=== PATIENT | female | born 1980 | race African-American/Black ===

== ENCOUNTER 2020-01-03 20:13 | Observation (INO) | payer OTHER ==
[2020-01-03] MEDS ORDERED: SODIUM CHLORIDE 1,000 ML IV STA (20:20)
[2020-01-03] MEDS ORDERED: EPINEPHrine 1:1,000 0.3 MG/0.3 ML SYR IM ONE (20:20)
[2020-01-03] MEDS ORDERED: ALBUTEROL SO4 2.5/IPRATROPIUM 0.5 INH SOL 3 ML VIAL.NEB. NEB ONE ×2 (20:20→21:16)
[2020-01-03] MEDS ORDERED: methylPREDNISolone NA SUCC 125 MG/2 ML VIAL IVPB ONE (20:20)
[2020-01-03] MEDS ORDERED: FAMOTIDINE 20 MG/50 ML IVPB 20 MG/50 ML MG IVPB ONE ×2 (20:20→21:17)
[2020-01-03] MEDS ORDERED: SODIUM CHLORIDE 2,204 ML IV ONE (20:43)
[2020-01-03] MEDS ORDERED: ACETAMINOPHEN 1000 MG/100 ML VIAL (NON FORMULARY) IVPB ONE (20:45)
--- NOTE | 2020-01-03 21:04 | PDOC ---
History of Present Illness - General Chief Complaint: Allergic Reaction Stated Complaint: ALLERGIC REACTION Time Seen by Provider: 01/03/20 20:30 - History of Present Illness Initial Comments: 01/03/20 20:56 39yo F with PMH of hypothyroidism (on synthroid) and ideopathic allergic reactions (extensive outpatient workup was reportedly negative) presents with two days of hives and several hours of SOB, chest pain, and abdominal pain. Unknown trigger. Reports sharp, intermittent, substernal chest pain without radiation. Not exertional, positional, or worse with deep breaths. Also reports suprapubic abdominal pain. Reports two days of hives not relieved by cetirizine. Denies f/c, n/v, constipation, diarrhea, urinary symptoms. Reports knee cramping. PMH/PSH: as above Meds: cetirizine, famotidine, synthroid Allergies: unknown ROS GENERAL/CONSTITUTIONAL: No fever or chills. HEAD, EYES, EARS, NOSE AND THROAT: No change in vision. No ear pain or discharge. No sore throat. CARDIOVASCULAR: chest pain and shortness of breath RESPIRATORY: No cough, wheezing, or hemoptysis. GASTROINTESTINAL: No nausea, vomiting, diarrhea or constipation. GENITOURINARY: No dysuria, frequency, or change in urination. MUSCULOSKELETAL: knee pain. No neck or back pain. SKIN: hives NEUROLOGIC: No headache, vertigo, loss of consciousness, or change in strength/sensation. ENDOCRINE: No increased thirst. No abnormal weight change HEMATOLOGIC/LYMPHATIC: No anemia, easy bleeding, or history of blood clots. PE GENERAL: Awake, alert, and fully oriented, in no acute distress on non- rebreather HEAD: No signs of trauma, normocephalic, atraumatic EYES: PERRLA, EOMI, sclera anicteric, conjunctiva clear ENT: Auricles normal inspection, hearing grossly normal, nares patent, oropharynx clear without exudates. Moist mucosa NECK: Normal ROM, supple, no lymphadenopathy, JVD, or masses LUNGS: No distress, speaks full sentences, clear to auscultation bilaterally HEART: Regular rate and rhythm, normal S1 and S2, no murmurs, rubs or gallops, p eripheral pulses normal and equal bilaterally. ABDOMEN: Soft, nontender, normoactive bowel sounds. No guarding, no rebound. No masses EXTREMITIES : Normal inspection, Normal range of motion, no edema. No clubbing or cyanosis. NEUROLOGICAL: Cranial nerves II through XII grossly intact. Normal speech, no focal sensorimotor deficits SKIN: urticaria throughout Vital Signs Temp Pulse Resp BP Pulse Ox 101.5 F H 124 H 20 116/72 92 L 01/03/20 20:15 01/03/20 20:15 01/03/20 20:15 01/03/20 20:15 01/03/20 20:15 MDM: 39yo female with hypothyroidsm and unknown allergy presents with hives and SOB, and also reports chest pain, abdominal pain, and knee cramping. Found to be febrile, tachycardic, and hypoxic. DDx includes anaphylaxis, allergic skin react ion, UTI, pneumonia, familial allergic disorder. -EKG -CXR -CBC, CMP, trops, coags, UA/UC, blood cultures -TSH, C1 esterase inhibitor, C1Q complement, C4 complement -fluids at 30cc/kg, tylenol, albuterol, benadryl, epi-pen, methylprednisolone, famotidine -oxygen 01/03/20 23:31 Labs notable for WBC 12.4 with 86.4% neutrophils, INR 1.24, UA with blood (on period) Will admit for severe allergic reaction and likely viral syndrome. Covid on differential Past History - Medical History Allergies/Adverse Reactions: Allergies Allergy/AdvReac Type Severity Reaction Status Date / Time No Known Allergies Allergy Verified 01/03/20 20:17 Home Medications: Ambulatory Orders Levothyroxine [Synthroid -] 100 mcg PO DAILY 06/30/14 Bacitracin - [Bacitracin Topical Ointment -] 1 applic TP DAILY 14 Days #1 tube 09/26/19 Diphenhydramine HCl [Benadryl Capsule -] 25 mg PO Q8H PRN #90 capsule 09/26/19 Famotidine [Pepcid -] 20 mg PO DAILY #30 tablet 09/26/19 Hydroxyzine HCl 50 mg PO TID PRN #90 tablet 09/26/19 predniSONE [Deltasone -] 10 mg PO DAILY 10/17/19 Asthma: No Cancer: No Cardiac Disorders: No COPD: No Diabetes: No HTN: No Seizures: No Thyroid Disease: Yes (hypothyroidism) - Reproductive History Is Patient Now?: No - Psycho-Social/Smoking History Smoking History: Never smoked Have you smoked in the past 12 months: No - Substance Abuse Hx (Audit-C & DAST Scrn) How often the patient has a drink containing alcohol: Monthly or less Score: In Men: 4 or > Positive; In Women: 3 or > Positive: 1 Screen Result (Pos requires Nsg. Audit-10AR): Negative *Physical Exam - Vital Signs Last Vital Signs Temp Pulse Resp BP Pulse Ox 101.5 F H 124 H 20 116/72 92 L 01/03/20 20:15 01/03/20 20:15 01/03/20 20:15 01/03/20 20:15 01/03/20 20:15 ED Treatment Course - LABORATORY CBC & Chemistry Diagram: 01/03/20 21:15 01/03/20 21:15 Discharge - Discharge Information Problems reviewed: Yes Clinical Impression/Diagnosis: Recurrent urticaria, Hypoxia Chest pain Qualifiers: Chest pain type: unspecified Qualified Code(s): R07.9 - Chest pain, unspecified Leukocytosis Qualifiers: Leukocytosis type: other Qualified Code(s): D72.828 - Other elevated white blood cell count - Follow up/Referral - Patient Discharge Instructions - Post Discharge Activity
[2020-01-03] MEDS ORDERED: ACETAMINOPHEN INJECTION 100 ML IVPB ONE (21:16)
[2020-01-03] MEDS ORDERED: methylPREDNISolone NA SUCC 125 MG/2 ML VIAL ONE (21:17)
[2020-01-03] MEDS ORDERED: EPINEPHrine/PF 1 MG/1 ML (1:1,000) AMPULE IM ONE (21:32)
[2020-01-03 21:59] LABS: BASO % 0.4 % (0-2.0); EOS % 0.4 % (0-4.5); HEMATOCRIT 36.7 % (32.4-45.2); HEMOGLOBIN 12.1 GM/dL (10.7-15.3); LYMPH % 9.9 % (8-40); MCH 28.7 pg (25.7-33.7); MCHC 32.9 g/dl (32.0-36.0); MEAN CELL VOLUME 87.2 fl (80-96); MEAN PLT VOLUME 9.1 fl (7.5-11.1); MONO % 2.9 % (3.8-10.2); NEUT % 86.4 % (42.8-82.8); PLATELET COUNT 282 K/MM3 (134-434); RBC 4.21 M/mm3 (3.60-5.2); RDW 14.7 % (11.6-15.6); WHITE BLOOD COUNT 12.4 K/mm3 (4.0-10.0)
--- NOTE | 2020-01-03 21:59 | PDOC ---
Documentation entered by Maribel Jaimes SCRIBE, acting as scribe for Radha Morales MD. Radha Morales MD: This documentation has been prepared by the scribeTheodore Ana, SCRIBE, under my direction and personally reviewed by me in its entirety. I confirm that the documentation accurately reflects all work, treatment, procedures, and medical decision making performed by me. Attending Attestation - Resident Resident Name: MorgandailytoyinJacob - ED Attending Attestation I have performed the following: I have examined & evaluated the patient, The case was reviewed & discussed with the resident, I agree w/resident's findings & plan, Exceptions are as noted - HPI HPI: 01/03/20 21:32 Patient is a 39 year old female with a significant past medical history of hypothyroidism and ideopathic allergic reactions, who presents to the ED with hives x2 days, SOB, chest pain, and abdominal pain x several hours. Patient stated the trigger of his symptoms is unknown but describes his chest pain as intermittent and that it does not radiate. Patient said his pain gets worse when he attempts to take a deep breath. Patient endorses: knee cramping Patient denies: fever, chills, nausea, vomiting, constipation, diarrhea, any urinary issues, or any other related symptoms. Allergies: NKDA - Physicial Exam PE: 01/03/20 22:04 Febrile General: awake, alert, fully oriented, mild acute distress, well developed, well nourished Head: normocephalic, atraumatic Eyes: PERRL, EOMI, anicteric sclera, conjunctiva clear, + swelling of face/lips ENT: Auricles normal inspection, hearing grossly normal, oropharynx clear without exudates, no nasal congestion, dry mucous membranes Neck: supple, normal ROM, no LAD, JVD or masses Lung: equal breath sounds b/l, CTA b/l, no crackles, wheezes; no distress, speaks full sentences Heart: RRR, normal S1, S2, no murmurs appreciated Abdomen: soft, non tender, normoactive bowel sounds, no guarding, rebound, masses Extremities: normal ROM, no edema, no erythema or tenderness, DP/PT pulses 2+ and symmetric Neuro: Cranial nerves: Cranial nerves II through XII are intact Motor: The upper extremities are 5/5 in all muscle groups. The lower extremities are 5/5 in all muscle groups. No pronator drift. Sensation: Sensation is intact to light touch throughout. Gait: Normal Skin: warm, dry, hives al over her lower legs and abd 01/03/20 22:05 - Medical Decision Making 01/03/20 21:56 Pt comes with fever and a picture that looks like HAE; pt states that she has been having this episode since ; progressive worsening of her hives. 01/03/20 21:57 Pt states that this time zantac didnt help her. She has had allergy testing and is allergic to no foods. Pt did drink milk today and had a cheese/cream based soup today 01/03/20 22:03 Pt's labs are pending 01/03/20 23:29 Pt is on her menstrual cycle, as such she has hematuria 01/04/20 03:00 Pt wull be admitted for HAE as well as thyroid disease. Discharge - Discharge Information Problems reviewed: Yes Clinical Impression/Diagnosis: Recurrent urticaria, Hypoxia Chest pain Qualifiers: Chest pain type: unspecified Qualified Code(s): R07.9 - Chest pain, unspecified Leukocytosis Qualifiers: Leukocytosis type: other Qualified Code(s): D72.828 - Other elevated white blood cell count - Follow up/Referral - Patient Discharge Instructions - Post Discharge Activity
[2020-01-03 22:06] LABS: EPI CELLS 9 /uL (0-25.1); HYALINE CASTS 0 /uL (0-3.1); URINE APPEARANCE CLEAR; URINE BACTERIA 235 /uL (0-1359); URINE BILIRUBIN NEGATIVE (NEGATIVE); URINE COLOR RED; URINE GLUCOSE (UA) NEGATIVE (NEGATIVE); URINE KETONE NEGATIVE (NEGATIVE); URINE LEUK ESTERASE TRACE (NEGATIVE); URINE NITRITE NEGATIVE (NEGATIVE); URINE PROTEIN NEGATIVE (NEGATIVE); URINE RBC 2318 /uL (0-23.9); URINE UROBILINOGEN 0.2 mg/dL (0.2-1.0); URINE WBC 14 /uL (0-25.8)
[2020-01-03 22:09] LABS: INR 1.24 (0.83-1.09); PROTHROMBIN TIME (PATIENT) 14.7 SEC (9.7-13.0)
[2020-01-03 22:11] LABS: ACTIVATED PTT 29.3 SECONDS (25.2-36.5)
[2020-01-03 22:27] LABS: ALBUMIN 3.3 g/dl (3.4-5.0); ALK PHOS 69 U/L (45-117); ANION GAP 8 MMOL/L (8-16); BILIRUBIN,TOTAL 0.5 mg/dL (0.2-1); BLOOD UREA NITROGEN 9.7 mg/dL (7-18); CALCIUM 8.9 mg/dL (8.5-10.1); CHLORIDE 105 mmol/L (98-107); CO2 24 mmol/L (21-32); CREATININE 0.7 mg/dL (0.55-1.3); GLUCOSE,RANDOM 97 mg/dL (74-106); POTASSIUM 4.5 mmol/L (3.5-5.1); SGOT/AST 36 U/L (15-37); SGPT/ALT 35 U/L (13-61); SODIUM 138 mmol/L (136-145)
[2020-01-03] MEDS ORDERED: EPINEPHrine/PF 1 MG/1 ML (1:1,000) AMPULE ONE (23:03)
--- NOTE | 2020-01-04 00:03 | PN ---
Teaching Attending Note Name of Resident: Imelda Anderson ATTENDING PHYSICIAN STATEMENT I saw and evaluated the patient. I reviewed the resident's note and discussed the case with the resident. I agree with the resident's findings and plan as documented. SUBJECTIVE: 39yoF with h/o Richelle's thyoriditis, hypothyroidism, and idiopathic anap hylaxis who presents with urticarial rash and shortness of breath. Patient notes she has had anaphylactic reactions multiplie times, follows with an fitness floor attendant but no trigger has been identified. Has been otherwise in her usual state of health. She was febrile on arrival to the ED and tachycardic to 124. Complaining of shortness of breath and abdominal pain. Received Benadryl, famotidine, Solumedrol, and IM epinephrine with improvement in breathing but no signfiicant change in the rash. CXR unremarkable, UA with some blood but noted to be on her menstrual period. OBJECTIVE: Vital Signs (72 hours) 01/03/20 01/04/20 01/04/20 20:15 00:34 06:45 Temperature 101.5 F H 98.1 F 97.4 F L Pulse Rate 124 H Pulse Rate [ 113 H 103 H Left Apical] Respiratory 20 18 19 Rate Blood Pressure 116/72 Blood Pressure 113/70 99/69 [Left Arm] O2 Sat by Pulse 92 L 99 98 Oximetry (%) EXAM: Gen: awake, alert, NAD HEENT: NC/AT CV: RRR, tachycardic, no MRG Resp: CTAB, unlabored Abd: Soft, NT, ND Derm: Diffuse wheals on extremities and torso, worst at upper thighs Ext: no edema Laboratory Results - last 24 hr 01/03/20 01/03/20 01/03/20 21:15 21:15 21:15 WBC 12.4 H RBC 4.21 Hgb 12.1 Hct 36.7 MCV 87.2 MCH 28.7 MCHC 32.9 RDW 14.7 Plt Count 282 MPV 9.1 Absolute Neuts (auto) 10.7 H Total Counted Neutrophils % 86.4 H Neutrophils % (Manual) Band Neutrophils % Lymphocytes % 9.9 D Lymphocytes % (Manual) Monocytes % 2.9 L Monocytes % (Manual) Eosinophils % 0.4 Basophils % 0.4 Nucleated RBC % 0 Platelet Estimate Platelet Comment PT with INR 14.70 H INR 1.24 H PTT (Actin FS) 29.3 Sodium 138 Potassium 4.5 Chloride 105 Carbon Dioxide 24 Anion Gap 8 BUN 9.7 Creatinine 0.7 Est GFR (CKD-EPI)AfAm 128.28 Est GFR (CKD-EPI)NonAf 110.69 Random Glucose 97 Lactic Acid Calcium 8.9 Phosphorus Magnesium Total Bilirubin 0.5 AST 36 ALT 35 Alkaline Phosphatase 69 Troponin I < 0.02 Total Protein 7.0 Albumin 3.3 L TSH 0.13 L Thyroxine (T4) Urine Color Urine Appearance Urine pH Ur Specific [place] Urine Protein Urine Glucose (UA) Urine Ketones Urine Blood Urine Nitrite Urine Bilirubin Urine Urobilinogen Ur Leukocyte Esterase Urine WBC (Auto) Urine RBC (Auto) Urine Casts (Auto) U Epithel Cells (Auto) Urine Bacteria (Auto) 01/03/20 01/03/20 01/04/20 21:30 21:30 04:50 WBC 11.3 H RBC 4.10 Hgb 11.7 Hct 35.2 MCV 86.0 MCH 28.4 MCHC 33.1 RDW 14.4 Plt Count 271 MPV 8.3 Absolute Neuts (auto) 10.8 H Total Counted 100 Neutrophils % 96.3 H Neutrophils % (Manual) 95.0 H Band Neutrophils % 1.0 Lymphocytes % 3.1 L D Lymphocytes % (Manual) 3.0 L D Monocytes % 0.6 L Monocytes % (Manual) 1 L Eosinophils % 0.0 D Basophils % 0.0 Nucleated RBC % 0 Platelet Estimate Adequate Platelet Comment No clotting detected PT with INR INR PTT (Actin FS) Sodium Potassium Chloride Carbon Dioxide Anion Gap BUN Creatinine Est GFR (CKD-EPI)AfAm Est GFR (CKD-EPI)NonAf Random Glucose Lactic Acid 1.6 Calcium Phosphorus Magnesium Total Bilirubin AST ALT Alkaline Phosphatase Troponin I Total Protein Albumin TSH Thyroxine (T4) Urine Color Red Urine Appearance Clear Urine pH 8.0 D Ur Specific [place] 1.008 L Urine Protein Negative Urine Glucose (UA) Negative Urine Ketones Negative Urine Blood 3+ H Urine Nitrite Negative Urine Bilirubin Negative Urine Urobilinogen 0.2 Ur Leukocyte Esterase Trace Urine WBC (Auto) 14 Urine RBC (Auto) 2318 Urine Casts (Auto) 0 U Epithel Cells (Auto) 9 Urine Bacteria (Auto) 235 01/04/20 04:50 WBC RBC Hgb Hct MCV MCH MCHC RDW Plt Count MPV Absolute Neuts (auto) Total Counted Neutrophils % Neutrophils % (Manual) Band Neutrophils % Lymphocytes % Lymphocytes % (Manual) Monocytes % Monocytes % (Manual) Eosinophils % Basophils % Nucleated RBC % Platelet Estimate Platelet Comment PT with INR INR PTT (Actin FS) Sodium 140 Potassium 4.1 Chloride 108 H Carbon Dioxide 22 Anion Gap 10 BUN 7.0 Creatinine 0.9 Est GFR (CKD-EPI)AfAm 94.67 Est GFR (CKD-EPI)NonAf 81.68 Random Glucose 194 H Lactic Acid Calcium 8.8 Phosphorus 2.8 Magnesium 1.9 Total Bilirubin 0.4 AST 22 ALT 35 Alkaline Phosphatase 76 Troponin I Total Protein 7.4 Albumin 3.5 TSH Thyroxine (T4) 10.9 Urine Color Urine Appearance Urine pH Ur Specific [place] Urine Protein Urine Glucose (UA) Urine Ketones Urine Blood Urine Nitrite Urine Bilirubin Urine Urobilinogen Ur Leukocyte Esterase Urine WBC (Auto) Urine RBC (Auto) Urine Casts (Auto) U Epithel Cells (Auto) Urine Bacteria (Auto) ASSESSMENT AND PLAN: 39yoF with h/o Richelle's thyoriditis, hypothyroidism, and idiopathic anap hylaxis who presents with urticarial rash and shortness of breath. Recurrent idiopathic anaphylaxis - monitor for recurrence of symptoms - continue home Zyrtec, famotidine - f/u with allergy Fever, SIRS Unclear etiology; WBC 12.4 as well No focalizing signs/sx CXR, UA unremarkable - monitor clinically - antibiotics deferred given lack of source and current well appearance - consider ID consult if fever returns Hypothyroid: TSH low; f/u T4. Continue home meds DVT ppx: Lovenox subq
--- NOTE | 2020-01-04 01:19 | HP ---
CHIEF COMPLAINT: SOB, rash PCP: Dr. Lopes HISTORY OF PRESENT ILLNESS: 39 y.o. F PMH hypothyroidism 2/2 Richelle's presenting for urticarial rash and shortness of breath. Patient states she was sitting at home and the rash came on suddenly, followed by bronchospasms w/ subsequent difficulty breathing. She has had many similar episodes in the past. Today in ED pt received steroids & duonebs with improvement of breathing however rash has persisted. During last hospital admission 09/21-09/25 was sent home w/ steroid taper and benadryl prn. During this patient found to have high DANICA titer and was sent to outpatient rheum for further rheumatological workup, which she reports came back all negative. She also had a skin biopsy at this time showing nonspecific lymphocytic infiltrate and eosinophilicis. Patient denies using any new soaps or detergents. No pets in the home. No sick contacts. ER course was notable for: (1) 125mg IV solu medrol (2)benadryl 50mg, epipen x1 (3) duonebs x3, 1L NS (4) fever 101.5F; wbc 12.4 Recent Travel: denies PAST MEDICAL HISTORY: as per hpi PAST SURGICAL HISTORY: ovarian cyst removal at age 24 ObGYN: LMP started 3 days ago 01/01/20, normal flow. 2 x NSVDs. Social History: Smoking: denies Alcohol:denies Drugs: denies FAMILY History: Diabetes, HTN, Allergies No Known Allergies Allergy (Verified 01/03/20 20:17) HOME MEDICATIONS: Home Medications Medication Instructions Recorded Levothyroxine [Synthroid -] 100 mcg PO DAILY 06/30/14 Bacitracin - [Bacitracin Topical 1 applic TP DAILY 14 Days #1 tube 09/26/19 Ointment -] Diphenhydramine HCl [Benadryl 25 mg PO Q8H PRN #90 capsule 09/26/19 Capsule -] Famotidine [Pepcid -] 20 mg PO DAILY #30 tablet 09/26/19 Hydroxyzine HCl 50 mg PO TID PRN #90 tablet 09/26/19 predniSONE [Deltasone -] 10 mg PO DAILY 10/17/19 REVIEW OF SYSTEMS CONSTITUTIONAL: Absent: fever, chills, diaphoresis, generalized weakness, malaise, loss of appetite, weight change HEENT: Absent: rhinorrhea, nasal congestion, throat pain, throat swelling, difficulty swallowing, mouth swelling, ear pain, eye pain, visual changes CARDIOVASCULAR: Absent: chest pain, syncope, palpitations, irregular heart rate, lightheadedness, peripheral edema RESPIRATORY: Absent: cough, shortness of breath, dyspnea with exertion, orthopnea, wheezing, stridor, hemoptysis GASTROINTESTINAL: Absent: abdominal pain, abdominal distension, nausea, vomiting, diarrhea, constipation, melena, hematochezia GENITOURINARY: Absent: dysuria, frequency, urgency, hesitancy, hematuria, flank pain, genital pain MUSCULOSKELETAL: Absent: myalgia, arthralgia, joint swelling, back pain, neck pain SKIN: Absent: rash, itching, pallor HEMATOLOGIC/IMMUNOLOGIC: Absent: easy bleeding, easy bruising, lymphadenopathy, frequent infections ENDOCRINE: Absent: unexplained weight gain, unexplained weight loss, heat intolerance, cold intolerance NEUROLOGIC: Absent: headache, focal weakness or paresthesias, dizziness, unsteady gait, seizure, mental status changes, bladder or bowel incontinence PSYCHIATRIC: Absent: anxiety, depression, suicidal or homicidal ideation, hallucinations. PHYSICAL EXAMINATION Vital Signs - 24 hr 01/03/20 01/04/20 20:15 00:34 Temperature 101.5 F H 98.1 F Pulse Rate 124 H Pulse Rate [ 113 H Left Apical] Respiratory 20 18 Rate Blood Pressure 116/72 Blood Pressure 113/70 [Left Arm] O2 Sat by Pulse 92 L 99 Oximetry (%) GENERAL: Awake, alert, and fully oriented, in no acute distress. HEENT: NCAT MMM LUNGS: Breath sounds equal, clear to auscultation bilaterally. No wheezes, and no crackles. No accessory muscle use. HEART: Regular rate and rhythm, normal S1 and S2 without murmur, rub or gallop. ABDOMEN: Soft, nontender, not distended, normoactive bowel sounds, no guarding, no rebound, no masses. MUSCULOSKELETAL: Normal range of motion at all joints. No bony deformities or tenderness. No CVA tenderness. EXTREMITIES: 2+ pulses, warm, well-perfused. No calf tenderness. No peripheral edema. SKIN: urticarial rash present b/l thighs and chest. Laboratory Results - last 24 hr 01/03/20 01/03/20 01/03/20 21:15 21:15 21:15 WBC 12.4 H RBC 4.21 Hgb 12.1 Hct 36.7 MCV 87.2 MCH 28.7 MCHC 32.9 RDW 14.7 Plt Count 282 MPV 9.1 Absolute Neuts (auto) 10.7 H Neutrophils % 86.4 H Lymphocytes % 9.9 D Monocytes % 2.9 L Eosinophils % 0.4 Basophils % 0.4 Nucleated RBC % 0 PT with INR 14.70 H INR 1.24 H PTT (Actin FS) 29.3 Sodium 138 Potassium 4.5 Chloride 105 Carbon Dioxide 24 Anion Gap 8 BUN 9.7 Creatinine 0.7 Est GFR (CKD-EPI)AfAm 128.28 Est GFR (CKD-EPI)NonAf 110.69 Random Glucose 97 Lactic Acid Calcium 8.9 Total Bilirubin 0.5 AST 36 ALT 35 Alkaline Phosphatase 69 Troponin I < 0.02 Total Protein 7.0 Albumin 3.3 L TSH 0.13 L Urine Color Urine Appearance Urine pH Ur Specific [place] Urine Protein Urine Glucose (UA) Urine Ketones Urine Blood Urine Nitrite Urine Bilirubin Urine Urobilinogen Ur Leukocyte Esterase Urine WBC (Auto) Urine RBC (Auto) Urine Casts (Auto) U Epithel Cells (Auto) Urine Bacteria (Auto) 01/03/20 01/03/20 21:30 21:30 WBC RBC Hgb Hct MCV MCH MCHC RDW Plt Count MPV Absolute Neuts (auto) Neutrophils % Lymphocytes % Monocytes % Eosinophils % Basophils % Nucleated RBC % PT with INR INR PTT (Actin FS) Sodium Potassium Chloride Carbon Dioxide Anion Gap BUN Creatinine Est GFR (CKD-EPI)AfAm Est GFR (CKD-EPI)NonAf Random Glucose Lactic Acid 1.6 Calcium Total Bilirubin AST ALT Alkaline Phosphatase Troponin I Total Protein Albumin TSH Urine Color Red Urine Appearance Clear Urine pH 8.0 D Ur Specific [place] 1.008 L Urine Protein Negative Urine Glucose (UA) Negative Urine Ketones Negative Urine Blood 3+ H Urine Nitrite Negative Urine Bilirubin Negative Urine Urobilinogen 0.2 Ur Leukocyte Esterase Trace Urine WBC (Auto) 14 Urine RBC (Auto) 2318 Urine Casts (Auto) 0 U Epithel Cells (Auto) 9 Urine Bacteria (Auto) 235 ASSESSMENT/PLAN: 39 y.o. F PMH Hashimotos thryoiditis presenting for shortness of breath with urticarial rash #Sepsis 2/2 anaphylaxis, likely allergic reaction -s/p steroids, epi in ED -s/p duonebs x3, benadryl with improvement of breathing status -monitor for worsening anaphylaxis -f/u covid-19 pcr -f/u cultures -consider empiric abx if patient remains febrile -UA showing 3+ blood however patient currently menstruating -rheumatology not consulted however may be beneficial to obtain records from outpatient office -recommend coding validator for allergen testing -f/u tick panel -leukocytosis likely 2/2 steroids given, f/u repeat #Hypothyroidism -continue synthroid -f/u TSH, free T4 #FEN -no standing fluids monitor & replete lytes prn regular diet #PPX Lovenox sq #Dispo observation Family Medical History Family History: As Documented Visit type - Emergency Visit Emergency Visit: Yes ED Registration Date: 01/03/20 Care time: The patient presented to the Emergency Department on the above date and was hospitalized for further evaluation of their emergent condition. - New Patient This patient is new to me today: Yes Date on this admission: 01/04/20 - Critical Care Critical Care patient: No ATTENDING PHYSICIAN STATEMENT I saw and evaluated the patient. I reviewed the resident's note and discussed the case with the resident. I agree with the resident's findings and plan as documented. SUBJECTIVE: OBJECTIVE: ASSESSMENT AND PLAN:
[2020-01-04] MEDS ORDERED: ALBUTEROL SO4 HFA INHALER IH PRN (01:33)
[2020-01-04 05:23] LABS: HEMATOCRIT 35.2 % (32.4-45.2); HEMOGLOBIN 11.7 GM/dL (10.7-15.3); LYMPH % 3.1 % (8-40); MCH 28.4 pg (25.7-33.7); MCHC 33.1 g/dl (32.0-36.0); MEAN PLT VOLUME 8.3 fl (7.5-11.1); MONO % 0.6 % (3.8-10.2); NEUT % 96.3 % (42.8-82.8); PLATELET COUNT 271 K/MM3 (134-434); RDW 14.4 % (11.6-15.6); WHITE BLOOD COUNT 11.3 K/mm3 (4.0-10.0)
[2020-01-04 05:53] LABS: ALBUMIN 3.5 g/dl (3.4-5.0); BILIRUBIN,TOTAL 0.4 mg/dL (0.2-1); CALCIUM 8.8 mg/dL (8.5-10.1); CREATININE 0.9 mg/dL (0.55-1.3); MAGNESIUM 1.9 mg/dL (1.8-2.4); PHOSPHOROUS 2.8 mg/dL (2.5-4.9); POTASSIUM 4.1 mmol/L (3.5-5.1); TOT PROT 7.4 g/dl (6.4-8.2)
[2020-01-04 06:56] LABS: PLATELET ESTIMATE ADEQUATE
[2020-01-04] MEDS ORDERED: ENOXAPARIN NA (PORCINE) 40 MG/0.4 ML DISP.SYRIN SQ ONE (10:16)
[2020-01-04] MEDS: ENOXAPARIN NA (PORCINE) 40 MG/0.4 ML DISP.SYRIN SQ SCH (10:24)
--- NOTE | 2020-01-04 10:36 | PN ---
Progress Note, Physician History of Present Illness: 39 y.o. F PMH hypothyroidism 2/2 Richelle's presenting for urticarial rash and shortness of breath. Patient states she was sitting at home and the rash came on suddenly, followed by bronchospasms w/ subsequent difficulty breathing. She has had many similar episodes in the past. This episode started on she called her apprenticeship training representative and zyrtec incrased to 2 bid and fomatidine added . Y rash worse with associated sob. In ED pt received steroids & duonebs with improvement of breathing however rash has persisted. During last hospital admission 09/21-09/25 was sent home w/ steroid taper and benadryl prn. During this patient found to have high DANICA titer and was sent to outpatient rheum for further rheumatological workup, which she reports came back all negative. She also had a skin biopsy at this time showing nonspecific lymphocytic infiltrate and eosinophilicis. Patient denies using any new soaps or detergents. No pets in the home. No sick contacts. At this time pt without sob or chest pain wants to go home - Current Medication List Current Medications: Active Medications Albuterol Sulfate (Ventolin 0.083% Nebulizer Soln -) 1 amp NEB Q4H PRN PRN Reason: SHORT OF BREATH/WHEEZING Albuterol Sulfate (Ventolin Hfa Inhaler -) 2 puff IH Q4H PRN PRN Reason: SHORTNESS OF BREATH Enoxaparin Sodium (Lovenox -) 40 mg SQ DAILY [facility] Last Admin: 01/04/20 10:24 Dose: 40 mg Documented by: Famotidine (Pepcid -) 20 mg PO BID [facility] Levothyroxine Sodium (Synthroid -) 75 mcg PO DAILY@0700 [facility] Loratadine (Claritin -) 10 mg PO DAILY [facility] Prednisone (Deltasone -) 60 mg PO DAILY [facility] - Objective Vital Signs: Vital Signs Temperature 98.4 F 01/04/20 09:46 Pulse Rate 83 01/04/20 09:46 Respiratory Rate 18 01/04/20 09:46 Blood Pressure 107/70 01/04/20 09:46 O2 Sat by Pulse Oximetry (%) 99 01/04/20 09:46 Cardiovascular: Yes: Regular Rate and Rhythm Respiratory: Yes: Regular, CTA Bilaterally Gastrointestinal: Yes: Normal Bowel Sounds, Soft Edema: No Integumentary: Yes: Rash (few on legs) Neurological: Yes: Alert, Oriented Labs: CBC, BMP 01/04/20 04:50 01/04/20 04:50 INR, PTT INR 1.24 (0.83-1.09) H 01/03/20 21:15 Problem List - Problems (1) Urticaria Assessment/Plan: Has had extensive work up with apprenticeship training representative needs further follow up and has apt on sunday po prednisone famotidine Code(s): L50.9 - URTICARIA, UNSPECIFIED (2) Fever Assessment/Plan: no further temps cultures negative no abx id consult Code(s): R50.9 - FEVER, UNSPECIFIED (3) Leukocytosis Assessment/Plan: now high maybe stress induced and steroids Code(s): D72.829 - ELEVATED WHITE BLOOD CELL COUNT, UNSPECIFIED Qualifiers: Leukocytosis type: other Qualified Code(s): D72.828 - Other elevated white blood cell count (4) Recurrent urticaria Assessment/Plan: as above Code(s): L50.8 - OTHER URTICARIA (5) Hypothyroid Assessment/Plan: decrease synthroid and monitor tsh check antibodies Code(s): E03.9 - HYPOTHYROIDISM, UNSPECIFIED
[2020-01-04] MEDS ORDERED: FAMOTIDINE 20 MG TABLET ONE (11:32)
[2020-01-04] MEDS ORDERED: predniSONE 20 MG TABLET (UD) ONE (11:32)
[2020-01-04] MEDS ORDERED: LORATADINE 10 MG TABLET ONE (11:33)
[2020-01-04] MEDS: FAMOTIDINE 20 MG TABLET PO SCH ×2 (11:38→21:53)
[2020-01-04] MEDS: LORATADINE 10 MG TABLET PO SCH (11:38)
[2020-01-04] MEDS: predniSONE 20 MG TABLET (UD) PO SCH (11:38)
--- NOTE | 2020-01-04 12:41 | EKG ---
Test Reason : Blood Pressure : / mmHG Vent. Rate : 117 BPM Atrial Rate : 117 BPM P-R Int : 140 ms QRS Dur : 076 ms QT Int : 342 ms P-R-T Axes : 048 016 012 degrees QTc Int : 477 ms SINUS TACHYCARDIA LOW VOLTAGE QRS NONSPECIFIC T WAVE ABNORMALITY ABNORMAL ECG WHEN COMPARED WITH ECG OF 23-SEP-2019 00:58, INVERTED T WAVES HAVE REPLACED NONSPECIFIC T WAVE ABNORMALITY IN ANTERIOR LEADS Confirmed by Jose Guadalupe Harris ([id number]) on 01/04/2020 12:41:06 PM Referred By: Confirmed By:Jose Guadalupe Harris
[2020-01-04 16:04] VITALS: BMI 31.0
[2020-01-05] MEDS ORDERED: diphenhydrAMINE HCL 25 MG CAPSULE (FP) PO ONE ×2 (00:34→06:25)
[2020-01-05] MEDS ORDERED: LEVOTHYROXINE NA 75 MCG TABLET (FP) PO SCH (07:00)
[2020-01-05] MEDS: FAMOTIDINE 20 MG TABLET PO SCH (09:35)
[2020-01-05] MEDS: predniSONE 20 MG TABLET (UD) PO SCH (09:35)
[2020-01-05] MEDS: LORATADINE 10 MG TABLET PO SCH (09:36)
[2020-01-05] MEDS: ENOXAPARIN NA (PORCINE) 40 MG/0.4 ML DISP.SYRIN SQ SCH (09:36)
--- NOTE | 2020-01-05 10:53 | CON.PULM ---
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 Pt has had several similar episodes since August, sees an computer systems hardware analyst as outpt. Also with fever to 101.5 on admission. Was given a ntihistamines and steroids with improvement. Currently denies shortness of breath, cough or wheezing. Still has a skin rash but improving as well. No further fevers. - History Source History Provided By: Patient, Medical Record Limitations to Obtaining History: No Limitations - Past Medical History ...LMP: 01/01/20 ...: No Endocrine: Yes: Hypothyroidism - Alcohol/Substance Use Hx Alcohol Use: No - Smoking History Smoking history: Never smoked Have you smoked in the past 12 months: No Home Medications - Allergies Allergies/Adverse Reactions: Allergies Allergy/AdvReac Type Severity Reaction Status Date / Time No Known Allergies Allergy Verified 01/03/20 20:17 - Home Medications Home Medications: Ambulatory Orders Levothyroxine [Synthroid -] 100 mcg PO DAILY 06/30/14 Bacitracin - [Bacitracin Topical Ointment -] 1 applic TP DAILY 14 Days #1 tube 09/26/19 Diphenhydramine HCl [Benadryl Capsule -] 25 mg PO Q8H PRN #90 capsule 09/26/19 Famotidine [Pepcid -] 20 mg PO DAILY #30 tablet 09/26/19 Hydroxyzine HCl 50 mg PO TID PRN #90 tablet 09/26/19 predniSONE [Deltasone -] 10 mg PO DAILY 10/17/19 Family Medical History Family Hx Diabetes: Mother, Father Review of Systems - Review of Systems Constitutional: reports: Fever. denies: Weakness Eyes: denies: Recent Change in Vision HENT: denies: Nasal Congestion, Throat Pain Neck: denies: Stiffness, Tenderness Cardiovascular: reports: Shortness of Breath. denies: Chest Pain Respiratory: reports: Cough, SOB on Exertion. denies: Hemoptysis, Wheezing Gastrointestinal: denies: Abdominal Pain, Nausea, Vomiting Genitourinary: denies: Dysuria, Hematuria Integumentary: reports: Rash Neurological: denies: Dizziness, Headache Physical Exam Vital Sings: Vital Signs Temperature 98.5 F 01/05/20 05:00 Pulse Rate 98 H 01/05/20 05:00 Respiratory Rate 17 01/05/20 05:00 Blood Pressure 107/66 01/05/20 05:00 O2 Sat by Pulse Oximetry (%) 98 01/05/20 05:00 Constitutional: Yes: Calm Eyes: Yes: Conjunctiva Clear, EOM Intact HENT: Yes: Atraumatic, Normocephalic Neck: Yes: Supple, Trachea Midline Cardiovascular: Yes: Regular Rate and Rhythm Respiratory: Yes: CTA Bilaterally ...Clubbing: No Gastrointestinal: Yes: Normal Bowel Sounds, Soft. No: Tenderness Edema: No Integumentary: Yes: Rash Labs: CBC, BMP 01/04/20 04:50 01/04/20 04:50 Imaging - Results Chest X-ray: Report Reviewed, Image Reviewed (no infiltrates) Assessment/Plan Acute Bronchospasm resolved Allergic Reaction h/o Richelle's thyroiditis Hypothyroidism - prednisone taper - inhaled bronchodilators - pt saturating well on room air - computer systems hardware analyst f/u as outpt - DVT prophylaxis - can continue work up as outpt from pulmonary standpoint Thank you for this consult Robert Cadena MD
--- NOTE | 2020-01-05 11:22 | PN ---
Progress Note (short form) - Note Progress Note: ID CONSULT DICTATED OBSERVE OFF ANTIBIOTICS OUTPATIENT FOLLOW UP
--- NOTE | 2020-01-05 12:18 | CONS ---
DATE OF CONSULTATION: DATE OF DICTATION: 01/05/2020 The patient is a 39-year-old female with a history of hypothyroidism and idiopathic urticaria, evaluated for fever. She was admitted to the hospital on January 03, 2020, with a 2-day history of hives, shortness of breath, chest pain, and abdominal pain. She reports that she was sitting at home when she developed sudden onset of urticarial rash involving her trunk and extremities. She also complained of wheezing. She was evaluated in the emergency room, where she was treated with epinephrine, inhaled bronchodilators, and intravenous corticosteroids. Patient reports having similar episode in August 2019. She was hospitalized briefly in August 2019. She reports having a rheumatologic workup as an outpatient, which was unrevealing. A skin biopsy was performed and was consistent with lymphocytic infiltrates with eosinophils. She is presently awake and alert, she is comfortable, she is seated in bed. She is in no acute distress. She did not appear acutely toxic appearing and is not acutely short of breath. She denies any cough or sputum production. No dysuria or hematuria. No vomiting or diarrhea. Her rash has been improving on steroids. She denies any ill contacts. No recent travel. No significant past history. Past medical history positive for hypothyroidism and idiopathic urticaria. No known allergies. Medications include Benadryl, albuterol, Lovenox, Pepcid, Synthroid (levothyroxine). SOCIAL HISTORY: She resides in the community. She is a nonsmoker, nondrinker. SYSTEMS REVIEW: Neurologic: No loss of consciousness, seizure activity, or focal weakness. Cardiac: As per HPI. Respiratory: As per HPI. Gastrointestinal: Negative vomiting or diarrhea. Genitourinary: Negative for urinary tract infection. LABORATORY DATA: White count 11.3, 96 neutrophils, 1 band, 3 lymphocytes, no eosinophils. Hematocrit 35.2, platelets 271, BUN 7, creatinine 0.9. Urinalysis: 14 white cells. Liver enzymes normal. COVID-19 PCR negative. Blood and urine cultures negative. Chest x-ray: Negative for acute infiltrate. PHYSICAL EXAMINATION: General: She is awake and alert, she is seated in bed in no acute distress. Breathing is nonlabored on room air. Vital Signs: Temperature 98.5. Blood pressure 107/66. Pulse 98, regular. Respirations 17 per minute. Eyes: Sclerae anicteric. Heart Sounds: S1, S2. Lungs: Clear. No rhonchi, rales or wheezing. Abdomen: Soft, nontender. Extremities: Negative for edema. Skin: There is a resolving urticarial rash present at the base of the neck, on the chest and abdomen. IMPRESSION: 1. Status post fever, unclear source. 2. Idiopathic urticaria. 3. History of hypothyroidism. Cultures are negative. She is nontoxic appearing, is afebrile. Would observe off antibiotic therapy. No objection to outpatient followup. Thank you for the kind referral. BORIS CEABLLOS M.D. [id number]
[2020-01-05] MEDS ORDERED: ALBUTEROL SO4 0.083% IH SOL 2.5 MG/3 ML VIAL.NEB. NEB PRN (13:10)
--- NOTE | 2020-01-05 13:34 | DS ---
Physical Examination Vital Signs: Vital Signs Temperature 98 F 01/05/20 09:00 Pulse Rate 120 H 01/05/20 09:00 Respiratory Rate 18 01/05/20 09:00 Blood Pressure 115/72 01/05/20 09:00 O2 Sat by Pulse Oximetry (%) 98 01/05/20 09:00 Cardiovascular: Yes: Regular Rate and Rhythm Respiratory: Yes: Regular, CTA Bilaterally Gastrointestinal: Yes: Normal Bowel Sounds, Soft Labs: CBC, BMP 01/04/20 04:50 01/04/20 04:50 Discharge Summary Problems reviewed: Yes Reason For Visit: FEVER, SHORTNESS OF BREATH, ALLERGY, LEUKOCYTOSIS Current Active Problems Chest pain (Acute) Fever (Acute) Hypoxia (Acute) Leukocytosis (Acute) Recurrent urticaria (Acute) Urticaria (Acute) Hospital Course: 39 y.o. F PMH hypothyroidism 2/2 Richelle's presenting for urticarial rash and shortness of breath. Patient states she was sitting at home and the rash came on suddenly, followed by bronchospasms w/ subsequent difficulty breathing. She has had many similar episodes in the past. This episode started on she called her rope rider and zyrtec incrased to 2 bid and fomatidine added . Yesterday rash worse with associated sob. In ED pt received steroids & duonebs with improvement of breathing however rash has persisted. During last hospital admission 09/21-09/25 was sent home w/ steroid taper and benadryl prn. During this patient found to have high DANICA titer and was sent to outpatient rheum for further rheumatological workup, which she reports came back all negative. She also had a skin biopsy at this time showing nonspecific lymphocytic infiltrate and eosinophilicis. Patient denies using any new soaps or detergents. No pets in the home. No sick contacts. At this time pt without sob or chest pain wants to go home - Problems (1) Urticaria Assessment/Plan: Has had extensive work up with rope rider needs further follow up and has apt on sunday po prednisone famotidine Code(s): L50.9 - URTICARIA, UNSPECIFIED (2) Fever Assessment/Plan: no further temps cultures negative no abx id consult Code(s): R50.9 - FEVER, UNSPECIFIED (3) Leukocytosis Assessment/Plan: now high maybe stress induced and steroids Code(s): D72.829 - ELEVATED WHITE BLOOD CELL COUNT, UNSPECIFIED Qualifiers: Leukocytosis type: other Qualified Code(s): D72.828 - Other elevated white blood cell count (4) Recurrent urticaria Assessment/Plan: as above Code(s): L50.8 - OTHER URTICARIA (5) Hypothyroid Assessment/Plan: decrease synthroid and monitor tsh check antibodies Code(s): E03.9 - HYPOTHYROIDISM, UNSPECIFIED outpatient follow up--d/w pt - Instructions Diet, Activity, Other Instructions: follow up with rope rider Referrals: Zachary Lopes MD [Primary Care Provider] - 1 Week - Home Medications Comprehensive Discharge Medication List: Ambulatory Orders Diphenhydramine HCl [Benadryl Capsule -] 25 mg PO Q8H PRN #90 capsule 09/26/19 Famotidine [Pepcid -] 20 mg PO DAILY #30 tablet 09/26/19 Cetirizine HCl [Zyrtec -] 10 mg PO DAILY #30 tablet 01/05/20 Famotidine [Pepcid -] 20 mg PO BID tablet 01/05/20 Levothyroxine [Synthroid -] 75 mcg PO DAILY@0700 #30 tablet 01/05/20 Prednisone 10 mg PO DAILY #100 tab.ds.pk 01/05/20
[2020-01-05 14:39] VITALS: BP 120/76; PULSE 108; TEMP 99
[2020-01-07 18:08] LABS: BABESIA MICROTI ANTIBODY IGG <1:10 (Neg:<1:10); BABESIA MICROTI ANTIBODY IGM <1:10 (Neg:<1:10)
[2020-01-08 15:10] LABS: E.chaff HME IgG Negative (Neg:<1:64)
== END 2020-01-05 17:44 | disposition home or self-care (01) ==
LOC: JER 20:13 → INTOOBSV 23:14 → JERBED 23:14 → J6S 01-04 15:30
PROVIDERS: ADMIT Hospitalist; ATTEND Family Medicine
PROC: 3E0F7GC Introduction of Other Therapeutic Substance into Respiratory Tract, Via Natural or Artificial Opening (ICD-10-PCS; principal; 2020-01-03)
PROC: 3E023GC Introduction of Other Therapeutic Substance into Muscle, Percutaneous Approach (ICD-10-PCS; 2020-01-03)
PROC: 3E033NZ Introduction of Analgesics, Hypnotics, Sedatives into Peripheral Vein, Percutaneous Approach (ICD-10-PCS; 2020-01-03)
PROC: 3E033GC Introduction of Other Therapeutic Substance into Peripheral Vein, Percutaneous Approach (ICD-10-PCS; 2020-01-03)
PROC: 3E0337Z Introduction of Electrolytic and Water Balance Substance into Peripheral Vein, Percutaneous Approach (ICD-10-PCS; 2020-01-03)
DX: L50.8 Other urticaria (principal); R09.02 Hypoxemia; R07.9 Chest pain, unspecified; D72.828 Other elevated white blood cell count; E03.9 Hypothyroidism, unspecified; T78.2XXA Anaphylactic shock, unspecified, initial encounter; E06.3 Autoimmune thyroiditis; E66.8 Other obesity; Z68.31 Body mass index [BMI] 31.0-31.9, adult; R21 Rash and other nonspecific skin eruption; R50.9 Fever, unspecified
CPT/HCPCS: 36415; 71045-TC-FY; 80053; 81003; 83605; 83735; 84100; 84436; 84443; 84484; 85025; 85610; 85730; 86160; 86161; 86618; 86666; 86753; 87040; 87086; 93005; 93010; 99285-25; G0378; J0131; U0003

== ENCOUNTER 2022-09-12 19:13 | Emergency (ER) | payer OTHER ==
[2022-09-12 19:19] VITALS: BP 125/64; PULSE 100; RESP 18; TEMP 98; BMI 34.5
[2022-09-12] MEDS ORDERED: IBUPROFEN 600 MG TABLET (FP) PO ONE ×2 (21:40→21:42)
== END 2022-09-12 22:03 | disposition home or self-care (01) ==
LOC: JERFT 19:13 → JER 19:13 → JERFT 22:03
DX: S92.902A Unspecified fracture of left foot, initial encounter for closed fracture (principal); W11.XXXA Fall on and from ladder, initial encounter
CPT/HCPCS: 73610-TC-LT-FY; 73630-TC-LT; 99283-25

== ENCOUNTER 2022-10-18 22:33 | Emergency (ER) | payer OTHER ==
[~2022-10-18 22:33] MED LIST: LIDOCAINE PATCH REMOVAL MC SCH
[2022-10-18 22:42] VITALS: TEMP 98.4; BMI 33.8
[2022-10-18] MEDS ORDERED: KETOROLAC TROMETHAMINE 15 MG/ML VIAL IM ONE (23:14)
[2022-10-18] MEDS ORDERED: LIDOCAINE 5% TOPICAL PATCH TP ONE (23:14)
[2022-10-18] MEDS ORDERED: ACETAMINOPHEN 500 MG TABLET (FP) PO ONE (23:15)
[2022-10-18] MEDS ORDERED: ACETAMINOPHEN 325 MG TABLET (FP) ONE (23:26)
[2022-10-18] MEDS ORDERED: LIDOCAINE 5% TOPICAL PATCH ONE (23:27)
[2022-10-18] MEDS ORDERED: KETOROLAC TROMETHAMINE 30 MG/1 ML VIAL ONE (23:27)
[2022-10-18 23:58] LABS: BASO % 0.5 % (0-2.0); EOS % 0.3 % (0-4.5); HEMOGLOBIN 12.6 GM/dL (10.7-15.3); LYMPH % 17.3 % (8-40); MCHC 33.2 g/dl (32.0-36.0); MEAN CELL VOLUME 84.3 fl (80-96); MEAN PLT VOLUME 8.2 fl (7.5-11.1); MONO % 8.7 % (3.8-10.2); NEUT % 73.2 % (42.8-82.8); PLATELET COUNT 299 10^3/uL (134-434); RDW 14.3 % (11.6-15.6); WHITE BLOOD COUNT 13.4 K/mm3 (4.0-10.0)
[2022-10-19 00:03] LABS: INR 1.34 (0.83-1.09); PROTHROMBIN TIME (PATIENT) 15.5 SEC (9.7-13.0)
[2022-10-19 00:06] LABS: ACTIVATED PTT 28.3 SECONDS (25.2-36.5)
[2022-10-19 00:17] LABS: POTASSIUM 4.2 mmol/L (3.5-5.1)
[2022-10-19 00:19] LABS: ALBUMIN 3.1 g/dl (3.4-5.0); CALCIUM 9.2 mg/dL (8.5-10.1)
[2022-10-19 00:22] LABS: CREATININE 1.1 mg/dL (0.55-1.3)
[2022-10-19 00:24] LABS: BILIRUBIN,TOTAL 0.3 mg/dL (0.2-1); TOT PROT 7.5 g/dl (6.4-8.2)
[2022-10-19] MEDS ORDERED: METHOCARBAMOL 500 MG TABLET PO ONE (01:25)
[2022-10-19] MEDS ORDERED: METHOCARBAMOL 500 MG TABLET ONE (01:41)
[2022-10-19 02:56] VITALS: BP 112/74; PULSE 95; RESP 18
== END 2022-10-19 03:55 | disposition home or self-care (01) ==
LOC: JER 22:33
PROC: 3E0233Z Introduction of Anti-inflammatory into Muscle, Percutaneous Approach (ICD-10-PCS; principal; 2022-10-18)
DX: M25.552 Pain in left hip (principal)
CPT/HCPCS: 36415; 71275-TC; 80053; 84703; 85025; 85379; 85610; 85730; 93005; 93010; 93971-TC; 99284-25; Q9967